=== PATIENT | female | born 1955 | race Two or more races ===

== ENCOUNTER → 2019-09-07 | Outpatient (CLI) | payer MEDICARE ==
[~2019-09-07] MED LIST: ASPI-630 PO; ATOR10TA60 PO; B2/M1TAB PO; DONE5TAB7 PO; ERGO500027 PO; GLIP10TA13 PO; GLYB5TAB3 PO; LOSA50TA15 PO; MELA5TAB20 PO; MEMA10TA56 PO; METF10007 PO; OMEG1CAP2 PO; PRAV10TA2 PO; SERT50TA8 PO; SITA100T PO
--- NOTE | 2019-09-07 09:18 | RAD ---
MR of the left shoulder HISTORY: Worsening left shoulder pain for one year. TECHNIQUE: Routine multiplanar sequences are obtained. FINDINGS: The acromioclavicular joint is mildly degenerative. Slight undersurface mass effect. The supraspinatus and infraspinatus tendons are heterogeneous with mild thickening compatible with tendinosis. Full-thickness tear at the far anterior supraspinatus tendon measuring about 5 mm AP diameter without retraction. There is some articular surface tearing extending through the more posterior supraspinatus tendon. Subscapularis tendinosis without high-grade tear. Trace fluid in the subdeltoid bursa. Mild rotator cuff muscle atrophy. No significant glenohumeral joint effusion. Mild blunting of the posterior labrum which appears small in size, compatible with degeneration or old tear. No acute labral detachment or para labral cyst is seen. The biceps tendon is not well seen, there appears to be proximal tendinosis. No acute fracture. No aggressive bone destruction. No acute soft tissue abnormality. IMPRESSION: 1. Rotator cuff tendinosis. Small subcentimeter full-thickness tear of the anterior supraspinatus tendon, with partial tearing through the more posterior supraspinatus. 2. Biceps tendinosis. 3. Blunting of the posterior labrum. Electronically signed by: Milo Pena MD (09/07/2019 9:14 AM) [place] [id number]
== END | disposition home or self-care (01) ==
LOC: MRI 11:31
PROVIDERS: ATTEND Orthopaedic Surgery
DX: S46.012A Strain of muscle(s) and tendon(s) of the rotator cuff of left shoulder, initial encounter (principal); X58.XXXA Exposure to other specified factors, initial encounter; Y93.89 Activity, other specified; Y92.89 Other specified places as the place of occurrence of the external cause; Y99.8 Other external cause status; M75.42 Impingement syndrome of left shoulder; M19.012 Primary osteoarthritis, left shoulder; M77.9 Enthesopathy, unspecified
CPT/HCPCS: 73221

== ENCOUNTER → 2019-09-27 | Outpatient (CLI) | payer MEDICARE | END | disposition home or self-care (01) | LOC: LAB 13:09 | PROVIDERS: ATTEND Orthopaedic Surgery | DX: Z11.59 Encounter for screening for other viral diseases (principal) | CPT/HCPCS: U0003-CS ==

== ENCOUNTER 2019-10-01 05:43 | Observation (INO) | payer MEDICARE ==
[~2019-10-01] VITALS: Ht 142.2 cm; Wt 71.2 kg
[2019-10-01] MEDS ORDERED: ROPIVacaine 0.5% PF 20 ML VIAL. ONE (06:45)
[2019-10-01] MEDS: INSULIN LISPRO 100 UNIT/ML 3ML VIAL for OP,RR ONLY. SQ PRN ×2 (06:45→11:37)
[2019-10-01] MEDS ORDERED: EPINEPHrine VIAL 30 MG/30 ML VIAL ONE (06:50)
[2019-10-01] MEDS ORDERED: BUPIVACAINE-EPI 0.25%-1:200000 MPF 30 ML VIAL. ONE ×2 (06:50→08:57)
[2019-10-01] MEDS ORDERED: IV RINGERS,LACTATED 1000ML 1,000 ML IV SCH (07:00)
[2019-10-01] MEDS ORDERED: INSULIN LISPRO 100 UNIT/ML 3ML VIAL for OP,RR ONLY. SQ ONE ×2 (07:00)
[2019-10-01] MEDS ORDERED: LIDOCAINE 1% PF 2 ML VIAL. ID PRN (07:00)
[2019-10-01] MEDS ORDERED: fentaNYL PF VIAL 100 MCG/2 ML VIAL IV PRN (07:00)
[2019-10-01] MEDS ORDERED: ONDANSETRON PF 4 MG/2 ML VIAL. IV PRN (07:00)
[2019-10-01] MEDS ORDERED: PROCHLORPERAZINE 10 MG/2 ML VIAL. IV PRN (07:00)
[2019-10-01] MEDS ORDERED: ONDANSETRON PF 4 MG/2 ML VIAL. ONE (07:05)
[2019-10-01] MEDS ORDERED: LIDOCAINE 2% PF 5 ML VIAL. ONE (07:05)
[2019-10-01] MEDS ORDERED: ROCURONIUM 50 MG/5 ML VIAL. ONE (07:05)
[2019-10-01] MEDS ORDERED: PROPOFOL 10 MG/ML (20ML) VIAL. IV ONE (07:05)
[2019-10-01] MEDS ORDERED: GLYCOPYRROLATE 1 MG/5 ML VIAL. ONE (07:05)
[2019-10-01] MEDS ORDERED: NEOSTIGMINE METHYLSULFATE 5 MG/5 ML SYRINGE. ONE (07:05)
[2019-10-01] MEDS ORDERED: fentaNYL PF VIAL 100 MCG/2 ML VIAL ONE ×2 (07:05→10:28)
[2019-10-01] MEDS ORDERED: DEXAMETHASONE SOD PHOS 4 MG/ML VIAL ONE (07:05)
--- NOTE | 2019-10-01 07:41 | PDOC1 ---
History and Physical Date of Admission Date of Admission DATE: 10/01/19 TIME: 07:33 Identification/Chief Complaint Chief Complaint left shoulder pain and weakness Source Source: Caregiver, Chart review, Patient History of Present Illness History of Present Illness 64-year-old woman with left shoulder pain being treated since March. We tried cortisone injection and physical therapy. She has been even more painful with nonoperative treatment, and is having difficulty holding a gallon of milk or doing other activities with the shoulder such as reaching. MRI shows rotator cuff tear biceps tendinitis and degenerative labral tear. She has a history of right shoulder rotator cuff repair by Dr. Yeung in 2014 which is doing well. Past Medical History Past Medical History Diabetes mellitus. Hypercholestrolemia. Alzheimer's. Sleep apnea. Restless legs. Depression. Past Surgical History Past Surgical History rotator cuff repair, C section Past Surgical History: Family History Family History Diabetes runs in family. Family History: Diabetes Social History Smoke: <1 pack per day ALCOHOL: none Current Medications Current Medications Current Medications Ondansetron HCl (Zofran) 4 mg PRN Q6HRS PRN IV NAUSEA/VOMITING; Start 10/01/19 at 07:00; Stop 10/02/19 at 06:59 Fentanyl Citrate (Fentanyl 2ml Vial) 25 mcg PRN Q5MIN PRN IV MILD PAIN 1-3; Start 10/01/19 at 07:00; Stop 10/02/19 at 06:59 Fentanyl Citrate (Fentanyl 2ml Vial) 50 mcg PRN Q5MIN PRN IV MODERATE TO SEVERE PAIN; Start 10/01/19 at 07:00; Stop 10/02/19 at 06:59 Morphine Sulfate (Morphine Sulfate) 1 mg PRN Q10MIN PRN IV SEVERE PAIN 7-10; Start 10/01/19 at 07:00; Stop 10/02/19 at 06:59 Ringer's Solution 1,000 ml @ 30 mls/hr Q24H IV Last administered on 10/01/19at 06:30; Start 10/01/19 at 07:00; Stop 10/01/19 at 18:59 Lidocaine HCl (Xylocaine-Mpf 1% 2ml Vial) 2 ml PRN 1X PRN ID PRIOR TO IV START; Start 10/01/19 at 07:00; Stop 10/02/19 at 06:59 Hydromorphone HCl (Dilaudid) 0.5 mg PRN Q10MIN PRN IV SEV PAIN, Second choice; Start 10/01/19 at 07:00; Stop 10/02/19 at 06:59 Prochlorperazine Edisylate (Compazine) 5 mg PACU PRN PRN IV NAUSEA, MRX1; Start 10/01/19 at 07:00; Stop 10/02/19 at 06:59 Cefazolin Sodium/ Dextrose 50 ml @ 100 mls/hr 1X ONCE IV ; Start 10/01/19 at 06:00; Stop 10/01/19 at 06:29; Status DC Insulin Human Lispro (HumaLOG VIAL for OP,RR ONLY) 0-10 units PRN Q1HR PRN SQ PER PROTOCOL Last administered on 10/01/19at 06:45; Start 10/01/19 at 06:45; Stop 10/02/19 at 06:44 Ropivacaine (Naropin 0.5%) 20 ml STK-MED ONCE .ROUTE ; Start 10/01/19 at 06:45; Stop 10/01/19 at 06:45; Status DC Epinephrine HCl (Adrenalin) 30 mg STK-MED ONCE .ROUTE ; Start 10/01/19 at 06:50; Stop 10/01/19 at 06:50; Status DC Bupivacaine HCl/ Epinephrine Bitart (Sensorcaine-Epi 0.25%-1:784139 Mpf) 30 ml STK-MED ONCE .ROUTE ; Start 10/01/19 at 06:50; Stop 10/01/19 at 06:50; Status DC Glycopyrrolate (Robinul) 1 mg STK-MED ONCE .ROUTE ; Start 10/01/19 at 07:05; Stop 10/01/19 at 07:05; Status DC Rocuronium [place] (Zemuron) 50 mg STK-MED ONCE .ROUTE ; Start 10/01/19 at 07:05; Stop 10/01/19 at 07:05; Status DC Fentanyl Citrate (Fentanyl 2ml Vial) 100 mcg STK-MED ONCE .ROUTE ; Start 10/01/19 at 07:05; Stop 10/01/19 at 07:05; Status DC Neostigmine [place] (Neostigmine Methylsulfate) 5 mg STK-MED ONCE .ROUTE ; Start 10/01/19 at 07:05; Stop 10/01/19 at 07:05; Status DC Propofol (Diprivan) 200 mg STK-MED ONCE IV ; Start 10/01/19 at 07:05; Stop 10/01/19 at 07:06; Status DC Lidocaine HCl (Lidocaine Pf 2% Vial) 5 ml STK-MED ONCE .ROUTE ; Start 10/01/19 at 07:05; Stop 10/01/19 at 07:06; Status DC Dexamethasone Sodium Phosphate (Decadron) 4 mg STK-MED ONCE .ROUTE ; Start 10/01/19 at 07:05; Stop 10/01/19 at 07:06; Status DC Ondansetron HCl (Zofran) 4 mg STK-MED ONCE .ROUTE ; Start 10/01/19 at 07:05; Stop 10/01/19 at 07:06; Status DC Active Scripts Active Reported Migrelief Caplet (B2/Mag Cit & Ox/Feverfew) 1 Each Tablet 1 Each PO DAILY Melatonin 5 Mg Tab.rapdis 1 Tab PO QHS 30 Days Vitamin D2 (Ergocalciferol (Vitamin D2)) 1,250 Mcg Capsule 2,000 Mcg PO BID Aspirin 81 Mg Tab.chew 2 Tab PO DAILY Metformin Hcl 1,000 Mg Tablet 1,000 Mg PO BIDWMEALS Sertraline Hcl 50 Mg Tablet 75 Mg PO DAILY Memantine HCl 10 Mg Tablet 10 Mg PO DAILY per daughter, patient taking once per day Atorvastatin Calcium 10 Mg Tablet 10 Mg PO DAILY Glyburide 5 Mg Tablet 5 Mg PO BID Donepezil Hcl 5 Mg Tablet 5 Mg PO HS Losartan Potassium 50 Mg Tablet 50 Mg PO DAILY Allergies Allergies: Coded Allergies: No Known Drug Allergies (Unverified , 10/01/19) ROS Review of System OPHTHALMOLOGY: Blurred vision none. Double vision denies. Change in vision none. ENT: Hearing loss reports. Change in voice denies. Rhinorrhea none. CARDIOLOGY: Palpitations none. Shortness of breath denies. Chest pain denies. CONSTITUTIONAL: Fever denies. Chills denies. Weight gain denies. Weakness none. weight loss denies. Fatigue reports. GASTROENTEROLOGY: Diarrhea denies. Vomiting none. Dysphagia none. UROLOGY: Voiding normally yes. Hematuria none. MUSCULOSKELETAL: Chronic back or neck pain denies. Swelling of the feet, hands, ankles an d /or legs denies. Joint pain reports. Tingling/numbness no. DERMATOLOGY: Rash denies. Lumps none. NEUROLOGY: Dizziness/lightheadedness reports. Double vision, temporary blindness denies. Tingling/numbness none. PSYCHOLOGY: Change in mood or personality denies. Memory loss reports. ENDOCRINOLOGY: Obesity denies. Fatigue none. Weight loss none. HEMATOLOGY/LYMPH: Hepatitis denies. Enlarged lymph nodes denies. Physical Exam General: Alert, Cooperative HEENT: Atraumatic Lungs: Normal air movement Heart: RRR Abdomen: Soft Extremities: Other (Gross alignment of the LEFT shoulder is normal. Tenderness to palpation of the subacromial bursa, AC joint, and greater tuberosity. Nontender biceps. Strength is 4/5 for the supraspinatus and 5/5 for the infraspinatus. No evidence of instability. Range of motion is 150/150/60/L5. Painful arc. Pain with resisted external rotation. Positive Neer's, Merrill, and Stanton's impingement tests. Skin, pulses, and sensation normal) Skin: No significant lesion Neuro: Normal speech, Sensation intact Vitals Vitals Vital Signs Date Time Temp Pulse Resp B/P (MAP) Pulse Ox O2 Delivery O2 Flow Rate FiO2 10/01/19 06:20 97.3 68 20 96 97.3 10/01/19 06:07 134/64 Room Air Labs Labs Laboratory Tests Test 10/01/19 06:28 Glucose (Fingerstick) 143 mg/dL (70-99) Laboratory Tests Test 10/01/19 06:28 Glucose (Fingerstick) 143 mg/dL (70-99) Images Images [facility] [id number] [place] [address] IMAGING REPORT Signed PATIENT: LUIS ALBERTO SMITH MACCOUNT: [id number] : 1955 LOCATION: MRI AGE: 64 SEX: F EXAM STATUS: PRE CLI ORD. PHYSICIAN: APOLLO BRUNO MD REASON: WORSENING LEFT SHOULDER PAIN x1YR, NKI PROCEDURE: UPPER EXT JOINT WO CONT LEFT MR of the left shoulder HISTORY: Worsening left shoulder pain for one year. TECHNIQUE: Routine multiplanar sequences are obtained. FINDINGS: The acromioclavicular joint is mildly degenerative. Slight undersurface mass effect. The supraspinatus and infraspinatus tendons are heterogeneous with mild thickening compatible with tendinosis. Full-thickness tear at the far anterior supraspinatus tendon measuring about 5 mm AP diameter without retraction. There is some articular surface tearing extending through the more posterior supraspinatus tendon. Subscapularis tendinosis without high-grade tear. Trace fluid in the subdeltoid bursa. Mild rotator cuff muscle atrophy. No significant glenohumeral joint effusion. Mild blunting of the posterior labrum which appears small in size, compatible with degeneration or old tear. No acute labral detachment or para labral cyst is seen. The biceps tendon is not well seen, there appears to be proximal tendinosis. No acute fracture. No aggressive bone destruction. No acute soft tissue abnormality. IMPRESSION: 1. Rotator cuff tendinosis. Small subcentimeter full-thickness tear of the anterior supraspinatus tendon, with partial tearing through the more posterior supraspinatus. 2. Biceps tendinosis. 3. Blunting of the posterior labrum. Electronically signed by: Milo Pena MD (09/07/2019 9:14 AM) [id number] VTE Prophylaxis Ordered VTE Prophylaxis Devices: Yes VTE Pharmacological Prophylaxi: No Assessment/Plan Assessment/Plan Her MRI shows a complete tear of her left rotator cuff with acromioclavicular joint arthritis and biceps tendinosis. We reviewed her report together and discussed the natural history of the condition along with the relevant risks, benefits, and alternatives to treatment. For today, I recommended surgery due to her continued debilitating pain and loss of function despite nonoperative tr eatment. I also advised surgery sooner rather than later due to her risk of progressive atrophy. At this point she has elected to proceed with surgery; plan for arthroscopy, subacromial decompression, distal clavicle excision, rotator cuff repair, and possible biceps tenodesis. We discussed the potential risks of infection, neurovascular injury, bleeding, need for revision surgery, or other potential surgical or anesthetic complications. We also discussed postoperative treatment and expectations including postoperative need for physical therapy and use of a DonJoy sling. Of note, the patient was mildly confused after her MRI due to Alzheimer's and dementia and I will plan to take appropriate precautions regarding her confusion postoperatively. She does have some dementia but I believe is able to complete physical therapy for the cuff repair and would benefit from surgery. She has significant pain and debility and is able to indicate that she wants to proceed with surgery because of the dysfunctional shoulder. All of her questions were answered and she desires to proceed with surgery. She is here today for elective left shoulder surgery as above. Justicifation of Admission Dx: Justifications for Admission: Justification of Admission Dx: N/A APOLLO BRUNO MD Oct 01, 2019 07:40
[2019-10-01] MEDS ORDERED: PHENYLEPHRINE 10 MG/ML VIAL. ONE (08:08)
[2019-10-01] MEDS ORDERED: ceFAZolin SODIUM IV Push 1 GM VIAL. IVP ONE (09:01)
[2019-10-01] MEDS ORDERED: oxyCODONE/APAP 5/325 1 TAB TABLET ONE (10:04)
[2019-10-01] MEDS ORDERED: oxyCODONE/APAP 5/325 1 TAB TABLET PO ONE (10:15)
[2019-10-01] MEDS: fentaNYL PF VIAL 100 MCG/2 ML VIAL IV PRN ×2 (10:33→10:55)
[2019-10-01] MEDS ORDERED: HYDROmorphone 2 MG/ML VIAL ONE (10:54)
[2019-10-01] MEDS: HYDROmorphone 2 MG/ML VIAL IV PRN ×4 (10:55→11:27)
[2019-10-01] MEDS ORDERED: LABETALOL 20 MG/4 ML DISP.SYRIN. IVP ONE (11:00)
[2019-10-01] MEDS ORDERED: MORPHINE SULFATE 2 MG/ML VIAL. ONE ×2 (11:23→11:58)
[2019-10-01] MEDS: MORPHINE SULFATE 2 MG/ML VIAL. IV PRN ×2 (11:25→11:40)
[2019-10-01] MEDS ORDERED: hydrALAZINE 20 MG/ML VIAL. IVP PRN ×2 (12:15→15:30)
--- NOTE | 2019-10-01 12:38 | PDOC1 ---
History and Physical Date of Admission Date of Admission DATE: 10/01/19 TIME: 12:38 Identification/Chief Complaint Chief Complaint POST OP HTN, LABILE IN PACU, seen in PACU with Dr Rosado, slow to awaken from iv pain meds, now more awake MRI showed a complete tear of her left rotator cuff with acromioclavicular joint arthritis and biceps tendinosis, raffi surgery well, but bp intermittently high. recheck at 1600, awake, alert bp wnl Past Medical History Cardiovascular: HTN Musculoskeletal: Osteoarthritis Past Surgical History Past Surgical History: Family History Family History Past Medical History Diabetes mellitus. hypertension Hypercholestrolemia. Alzheimer's. Sleep apnea. Restless legs. Depression. Past Surgical History Past Surgical History rotator cuff repair, C section Past Surgical History: Family History Family History Diabetes runs in family. Family History: Diabetes Social History Smoke: <1 pack per day ALCOHOL: none Family History: Diabetes Social History Smoke: No ALCOHOL: none Drugs: None Current Medications Current Medications Current Medications Ondansetron HCl (Zofran) 4 mg PRN Q6HRS PRN IV NAUSEA/VOMITING; Start 10/01/19 at 07:00; Stop 10/02/19 at 06:59 Fentanyl Citrate (Fentanyl 2ml Vial) 25 mcg PRN Q5MIN PRN IV MILD PAIN 1-3; Start 10/01/19 at 07:00; Stop 10/02/19 at 06:59 Fentanyl Citrate (Fentanyl 2ml Vial) 50 mcg PRN Q5MIN PRN IV MODERATE TO SEVERE PAIN Last administered on 10/01/19at 10:55; Start 10/01/19 at 07:00; Stop 10/02/19 at 06:59 Morphine Sulfate (Morphine Sulfate) 1 mg PRN Q10MIN PRN IV SEVERE PAIN 7-10 Last administered on 10/01/19at 11:40; Start 10/01/19 at 07:00; Stop 10/02/19 at 06:59 Ringer's Solution 1,000 ml @ 30 mls/hr Q24H IV Last administered on 10/01/19at 06:30; Start 10/01/19 at 07:00; Stop 10/01/19 at 18:59 Lidocaine HCl (Xylocaine-Mpf 1% 2ml Vial) 2 ml PRN 1X PRN ID PRIOR TO IV START; Start 10/01/19 at 07:00; Stop 10/02/19 at 06:59 Hydromorphone HCl (Dilaudid) 0.5 mg PRN Q10MIN PRN IV SEV PAIN, Second choice Last administered on 10/01/19at 11:27; Start 10/01/19 at 07:00; Stop 10/02/19 at 06:59 Prochlorperazine Edisylate (Compazine) 5 mg PACU PRN PRN IV NAUSEA, MRX1; Start 10/01/19 at 07:00; Stop 10/02/19 at 06:59 Cefazolin Sodium/ Dextrose 50 ml @ 100 mls/hr 1X ONCE IV Last administered on 10/01/19at 07:44; Start 10/01/19 at 06:00; Stop 10/01/19 at 06:29; Status DC Insulin Human Lispro (HumaLOG VIAL for OP,RR ONLY) 0-10 units PRN Q1HR PRN SQ PER PROTOCOL Last administered on 10/01/19at 11:37; Start 10/01/19 at 06:45; Stop 10/02/19 at 06:44 Ropivacaine (Naropin 0.5%) 20 ml STK-MED ONCE .ROUTE ; Start 10/01/19 at 06:45; Stop 10/01/19 at 06:45; Status DC Epinephrine HCl (Adrenalin) 30 mg STK-MED ONCE .ROUTE Last administered on 10/01/19at 08:45; Start 10/01/19 at 06:50; Stop 10/01/19 at 06:50; Status DC Bupivacaine HCl/ Epinephrine Bitart (Sensorcaine-Epi 0.25%-1:318633 Mpf) 30 ml STK-MED ONCE .ROUTE Last administered on 10/01/19at 08:46; Start 10/01/19 at 06:50; Stop 10/01/19 at 06:50; Status DC Glycopyrrolate (Robinul) 1 mg STK-MED ONCE .ROUTE ; Start 10/01/19 at 07:05; Stop 10/01/19 at 07:05; Status DC Rocuronium [place] (Zemuron) 50 mg STK-MED ONCE .ROUTE ; Start 10/01/19 at 07:05; Stop 10/01/19 at 07:05; Status DC Fentanyl Citrate (Fentanyl 2ml Vial) 100 mcg STK-MED ONCE .ROUTE ; Start 10/01/19 at 07:05; Stop 10/01/19 at 07:05; Status DC Neostigmine [place] (Neostigmine Methylsulfate) 5 mg STK-MED ONCE .ROUTE ; Start 10/01/19 at 07:05; Stop 10/01/19 at 07:05; Status DC Propofol (Diprivan) 200 mg STK-MED ONCE IV ; Start 10/01/19 at 07:05; Stop 10/01/19 at 07:06; Status DC Lidocaine HCl (Lidocaine Pf 2% Vial) 5 ml STK-MED ONCE .ROUTE ; Start 10/01/19 at 07:05; Stop 10/01/19 at 07:06; Status DC Dexamethasone Sodium Phosphate (Decadron) 4 mg STK-MED ONCE .ROUTE ; Start 10/01/19 at 07:05; Stop 10/01/19 at 07:06; Status DC Ondansetron HCl (Zofran) 4 mg STK-MED ONCE .ROUTE ; Start 10/01/19 at 07:05; Stop 10/01/19 at 07:06; Status DC Phenylephrine HCl (Leonardo-Synephrine Inj) 10 mg STK-MED ONCE .ROUTE ; Start 10/01/19 at 08:08; Stop 10/01/19 at 08:08; Status DC Bupivacaine HCl/ Epinephrine Bitart (Sensorcaine-Epi 0.25%-1:597325 Mpf) 30 ml STK-MED ONCE .ROUTE Last administered on 10/01/19at 09:22; Start 10/01/19 at 08:57; Stop 10/01/19 at 08:57; Status DC Cefazolin Sodium (Ancef) 1 gm STK-MED ONCE IVP ; Start 10/01/19 at 09:01; Stop 10/01/19 at 09:01; Status DC Oxycodone/ Acetaminophen (Percocet 5/325) 2 tab 1X ONCE PO ; Start 10/01/19 at 10:15; Stop 10/01/19 at 10:16; Status DC Oxycodone/ Acetaminophen (Percocet 5/325) 1 tab STK-MED ONCE .ROUTE ; Start 10/01/19 at 10:04; Stop 7/10/20 at 10:05; Status DC Fentanyl Citrate (Fentanyl 2ml Vial) 100 mcg STK-MED ONCE .ROUTE ; Start 10/01/19 at 10:28; Stop 10/01/19 at 10:28; Status DC Hydromorphone HCl (Dilaudid) 2 mg STK-MED ONCE .ROUTE ; Start 10/01/19 at 10:54; Stop 10/01/19 at 10:54; Status DC Labetalol HCl (Normodyne Iv Push) 20 mg ONCE ONCE IVP ; Start 10/01/19 at 11:00; Stop 10/01/19 at 11:01; Status DC Morphine Sulfate (Morphine Sulfate) 2 mg STK-MED ONCE .ROUTE ; Start 10/01/19 at 11:23; Stop 10/01/19 at 11:23; Status DC Morphine Sulfate (Morphine Sulfate) 2 mg STK-MED ONCE .ROUTE ; Start 10/01/19 at 11:58; Stop 10/01/19 at 11:59; Status DC Hydralazine HCl (Apresoline Inj) 10 mg PRN Q3HRS PRN IVP ELEVATED BP, SEE COMMENTS; Start 10/01/19 at 12:15 Active Scripts Active Reported Migrelief Caplet (B2/Mag Cit & Ox/Feverfew) 1 Each Tablet 1 Each PO DAILY Melatonin 5 Mg Tab.rapdis 1 Tab PO QHS 30 Days Vitamin D2 (Ergocalciferol (Vitamin D2)) 1,250 Mcg Capsule 2,000 Mcg PO BID Aspirin 81 Mg Tab.chew 2 Tab PO DAILY Metformin Hcl 1,000 Mg Tablet 1,000 Mg PO BIDWMEALS Sertraline Hcl 50 Mg Tablet 75 Mg PO DAILY Memantine HCl 10 Mg Tablet 10 Mg PO DAILY per daughter, patient taking once per day Atorvastatin Calcium 10 Mg Tablet 10 Mg PO DAILY Glyburide 5 Mg Tablet 5 Mg PO BID Donepezil Hcl 5 Mg Tablet 5 Mg PO HS Losartan Potassium 50 Mg Tablet 50 Mg PO DAILY Allergies Allergies: Coded Allergies: No Known Drug Allergies (Unverified , 10/01/19) ROS Review of System unable to cooperate due to anesthesia General: No: Chills, Night Sweats, Fatigue, Malaise, Appetite, Other PSYCHOLOGICAL ROS: YES: Memory difficulties; No: Anxiety, Behavioral Disorder, Concentration difficultie, Decreased libido, Depression, Disorientation, Hallucinations, Hostility, Irritablity, Mood Swings, Obsessive thoughts, Physical abuse, Sexual abuse, Sleep disturbances, Suicidal ideation, Other ALLERGY AND IMMUNOLOGY: No: Hives, Insect Bite Sensitivity, Itchy/Watery Eyes, Nasal Congestion, Post Nasal Drip, Seasonal Allergies, Other Hematological and Lymphatic: No: Bleeding Problems, Blood Clots, Blood Transfusions, Brusing, Night Sweats, Pallor, Swollen Lymph Nodes, Other Respiratory: No: Cough, Hemoptysis, Orthopnea, Pleuritic Pain, Shortness of br eath, SOB with excertion, Sputum Changes, Stridor, Tachypnea, Wheezing, Other Gastrointestinal: No Nausea, No Vomiting, No Abdominal Pain, No Diarrhea, No Constipation, No Melena, No Hematochezia, No Other Neurological: Yes Confusion Physical Exam General: Alert, Oriented X3, Cooperative, No acute distress HEENT: Atraumatic, EOMI, Mucous membr. moist/pink Lungs: Clear to auscultation, Normal air movement Heart: S1S2, RRR, no thrills Breasts: Not examined Abdomen: Normal bowel sounds, Soft Rectal Exam: not examined PELVIC: Examination not indicated Extremities: No cyanosis, No edema Skin: No rashes Neuro: Normal speech, Strength at 5/5 X4 ext, Cranial nerves 3-12 NL Psych/Mental Status: Mental status NL, Mood NL Vitals Vitals Vital Signs Date Time Temp Pulse Resp B/P (MAP) Pulse Ox O2 Delivery O2 Flow Rate FiO2 10/01/19 12:20 103 17 140/54 97 Simple Mask 10 10/01/19 12:05 97.4 97.4 Labs Labs Laboratory Tests Test 10/01/19 06:28 10/01/19 10:23 10/01/19 11:33 Glucose (Fingerstick) 143 mg/dL (70-99) 181 mg/dL (70-99) 223 mg/dL (70-99) Laboratory Tests Test 10/01/19 06:28 10/01/19 10:23 10/01/19 11:33 Glucose (Fingerstick) 143 mg/dL (70-99) 181 mg/dL (70-99) 223 mg/dL (70-99) Images Images MR of the left shoulder HISTORY: Worsening left shoulder pain for one year. TECHNIQUE: Routine multiplanar sequences are obtained. FINDINGS: The acromioclavicular joint is mildly degenerative. Slight undersurface mass effect. The supraspinatus and infraspinatus tendons are heterogeneous with mild thickening compatible with tendinosis. Full-thickness tear at the far anterior supraspinatus tendon measuring about 5 mm AP diameter without retraction. There is some articular surface tearing extending through the more posterior supraspinatus tendon. Subscapularis tendinosis without high-grade tear. Trace fluid in the subdeltoid bursa. Mild rotator cuff muscle atrophy. No significant glenohumeral joint effusion. Mild blunting of the posterior labrum which appears small in size, compatible with degeneration or old tear. No acute labral detachment or para labral cyst is seen. The biceps tendon is not well seen, there appears to be proximal tendinosis. No acute fracture. No aggressive bone destruction. No acute soft tissue abnormality. IMPRESSION: 1. Rotator cuff tendinosis. Small subcentimeter full-thickness tear of the anterior supraspinatus tendon, with partial tearing through the more posterior supraspinatus. 2. Biceps tendinosis. 3. Blunting of the posterior labrum. Electronically signed by: Milo Pena MD (09/07/2019 9:14 AM) [id number] DICTATED and SIGNED BY: MILO PENA MD DATE: 09/07/19913 VTE Prophylaxis Ordered VTE Prophylaxis Devices: Yes VTE Pharmacological Prophylaxi: No Assessment/Plan Assessment/Plan impression 1. POST operative labile hypertension 2. KNOWN HX HTN 3. MRI shows a complete tear of her left rotator cuff with acromioclavicular joint arthritis and biceps tendinosis. Open repair, chronic tear without graft, left shoulder rotator cuff repair. 09/30 4. MORBID OBESITY PLAN ADMIT IV HYDRALAZINE 10 MG Q 3 HRS PRN SBP> 165 NEUROCHECKS Q 2 HRS CBC, COMP HEALTH NOW CVC BED BEDREST CONSULT DR ROSADO NPO UNTIL AWAKE IV HYDRALAZINE 10MG Q 3 HRS PRN BP SUPPORT Cardiology consult echo SS INSULIN CONT HOME MEDS 56 min pt exam, chart review, > 50% of time spent with exam, chart review, pt care coordination Justicifation of Admission Dx: Justifications for Admission: Justification of Admission Dx: N/A ESAU IVEY MD Oct 01, 2019 12:38
[2019-10-01] MEDS: IV NORMAL SALINE 1000ML BAG 1,000 ML IV SCH (12:54)
[2019-10-01] MEDS ORDERED: 0.9 % SODIUM CHLORIDE 10 ML DISP.SYRIN. IV PRN (13:00)
[2019-10-01] MEDS ORDERED: MAG HYDROX/ALUMINUM HYD/SIMETH 30 ML ORAL.SUSP PO PRN (13:00)
[2019-10-01] MEDS ORDERED: ALBUTEROL SULFATE 2.5 MG/3 ML NEBU. NEB PRN (13:00)
[2019-10-01] MEDS ORDERED: DOCUSATE SODIUM 100 MG CAPSULE. PO PRN (13:00)
[2019-10-01] MEDS ORDERED: ZOLPIDEM 5 MG TABLET. PO PRN (13:00)
[2019-10-01] MEDS ORDERED: guaiFENesin ORAL 200 MG/10 ML LIQUID. PO PRN (13:00)
[2019-10-01] MEDS ORDERED: DEXTROSE 50% 25 GM / 50ML DISP.SYRIN. IV PRN (13:00)
[2019-10-01] MEDS ORDERED: SODIUM PHOSPHATES 19/7GM 133 ML ENEMA. PR PRN (13:00)
--- NOTE | 2019-10-01 13:11 | PDOC4 ---
Operative Note Operative Note PREOPERATIVE DIAGNOSES: 1. Incomplete rotator cuff tear or rupture of left shoulder, not specified as traumatic M75.112 2. Impingement syndrome of left shoulder M75.42 3. Left shoulder acromioclavicular joint osteoarthritis (Primary osteoarthritis, left shoulder) M19.012 4. Biceps tendonitis POSTOPERATIVE DIAGNOSES: 1. Incomplete rotator cuff tear or rupture of left shoulder, not specified as traumatic M75.112 2. Impingement syndrome of left shoulder M75.42 3. Left shoulder acromioclavicular joint osteoarthritis (Primary osteoarthritis, left shoulder) M19.012 PROCEDURES PERFORMED: 1. Open repair, chronic tear without graft, left shoulder rotator cuff repair. CPT 46796 2. Arthroscopy, shoulder, surgical; decompression of subacromial space with partial acromioplasty, with coracoacromial ligament release CPT 38019 3. Arthroscopy, shoulder, surgical; distal claviculectomy including distal articular surface (Sanjuanita procedure) CPT 70300 SURGEON: Apollo Rosado M.D. ELECTRICAL JOURNEYMAN: Elio PALENCIA ANESTHESIA: General plus regional block ESTIMATED BLOOD LOSS: 25 mL COMPLICATIONS: None SPECIMENS: None DRAINS: None INDICATIONS FOR PROCEDURE: Ms. Heller is a 64-year-old woman with shoulder pain and weakness. An MRI shows a rotator cuff tear but preserved muscle. She tried nonoperative treatment without success. We discussed options for treatment. I have recommended arthroscopic subacromial decompression, arthroscopic distal clavicle excision and then likely a mini open cuff repair and possible biceps tenodesis. We talked about the potential risks of that such as bleeding, inf ection, blood clots, scarring, retear, continued pain, neurovascular injury, infection or other potential surgical or anesthetic complications. All of her questions about surgery were answered, and she desired to proceed. A written consent was obtained. DESCRIPTION OF PROCEDURE: The patient was identified in the preoperative holding area. The correct left shoulder was marked by me. Regional block was performed by the anesthesia department. She was taken to the operating room where a general anesthetic was used. Preoperative antibiotics were given intravenously. A time-out procedure was performed. The patient was positioned in the beach- chair position with the bony prominences was well padded. SCDs were used on the legs. Eyes were protected and a face pad was used. Neutral cervical spine positioning was used. Landmarks were marked on the shoulder with a skin marker. The skin was prepared initially at the shoulder area only, and 20 mL of 0.25% bupivacaine with epinephrine was injected into the subacromial space and glenohumeral joint. Next, the arm was circumferentially prepared with ChloraPrep solution from the neck to the fingertips, and circumferential sterile waterproof arthroscopy draping was applied. An impervious stockinette was used on the lower arm, and a Spider arm keene was used. Posterior, posterolateral, lateral and anterior arthroscopy portals were used. The glenohumeral joint showed normal articular surfaces, minor degenerative change only of the posterior labrum and minimal shaving debridement was performed. The biceps tendon was intact and did not show any partial tearing or evidence of significant degenerative change. The subscapularis appears intact arthroscopically. There was partial tearing of the anterior supraspinatus, and a marker suture was placed. The subacromial space was entered through the posterolateral portal. There was extensive impingement occurring and a very prominent anterior and lateral acromion. The marker suture location showed high-grade bursal sided partial thickness tear and possible small area of full-thickness tear. I removed the undersurface periosteum with RADSONE's Edge Bipolar Arthroscopic RF System. I performed a three-stage acromioplasty, the first stage with a 6.0 mm oval dewey in the lateral portal and defining the anterior tip of the acromion, the second stage with a dewey in the posterior portal and the arthroscope laterally, for the cutting block technique converting the acromion into a Bigliani type I configuration, and the third stage with the dewey again laterally for final smoothing. I also noted a very prominent and arthritic acromioclavicular joint and a distal clavicle excision was indicated. I resected the entire distal clavicle articular surface using the dewey. This decompressed the subacromial space nicely. The cuff tear had complex laminations, and I converted to an open repair. Antibiotics were re-dosed. The skin was prepared second time with ChloraPrep. Outer gloves were changed. An anterolateral deltoid raphe splitting incision was used. Care was made not to extend more than 4 cm distal to the acromion so as to avoid axillary nerve injury. Self-retaining retractors were used including a Weitlaner retractor. This was a high grade chronic tear somewhat deficient regarding the bursal sided supraspinatus tissue with a thin deep layer of intact cuff tissue only 2-3 mm thick of intact cuff. The infraspinatus is intact. I completed the tear with a 15 blade scalpel, perforating the remaining rim of intact cuff and converting this to a full-thickness crescent tear approximately 2 cm in width. The cuff tissue at the tear is degenerative and poor quality due to the chronic tear but the remaining cuff tissue is of good quality and the cuff tear is mobile and easily repaired. I did debridement of some of the nonviable fragments of chronic degenerative rotator cuff tissue at the edge of the repair. I used a rongeurs and the bur to create a "crimson duvet" at the footprint, and removed a prominent osteophyte at the lateral footprint. I used the Arthrex SpeedBridge kit for the rotator cuff repair. I did a SpeedBridge repair with two medial row biocomposite 4.75 mm anchors and two lateral row biocomposite 4.75 mm anchors. I placed the two medial row anchors and then passed the mattress sutures and swedged FiberTapes using the Industry Weapon suture passer. I tied the medial row mattress sutures. The crossing tapes were then trimmed and I placed two lateral Swivelock anchors at the lateral aspect of the footprint. The more posterior of the lateral row anchors had poor bone fixation, and I tried replacing this with a 6.25 mm anchor which still had poor fixation. Ultimately I created an anchor hole further down the lateral cortex of the humerus for better bone quality and used a 4.75 mm anchor with secure fixation. I did use the additional sutures from lateral row anchors anteriorly and posteriorly into the small dog ears, for further stabilization of the lateral row. All of the sutures were trimmed. Copious saline irrigation was used. The deltoid fascia was repaired with 0 Vicryl [id number] sutures. The subcutaneous tissues were closed with 2-0 Vicryl by my research lab assistant. A 3-0 Prolene was used in the skin in interrupted and running subcuticular fashion by my research lab assistant. Mastisol and Steri-Strips were used. Needle and sponge counts were correct. Additional 30 mL of 0.25% bupivacaine with epinephrine was injected. Sterile dressings were applied. The DonJoy UltraSling was used. There were no apparent complications and the patient was returned to recovery room in stable condition. APOLLO ROSADO MD Oct 01, 2019 13:11
[2019-10-01 13:30] VITALS: BP 104/51
[2019-10-01 15:00] VITALS: BP 116/60
--- NOTE | 2019-10-01 15:19 | PDOC2 ---
JOSE KAY OVERLOCK ELASTIC ATTACHER 10/01/19 1519: CARDIAC CONSULT DATE OF CONSULT Date of Consult DATE: 10/01/19 TIME: 15:08 REASON FOR CONSULT Reason for Consult: Post op HTN REFERRING PHYSICIAN Referring Physician: Fullbright SOURCE Source: Chart review, Patient HISTORY OF PRESENT ILLNESS HISTORY OF PRESENT ILLNESS This is a 64 yo female admitted for planned left shoulder repair. She has been significant pain and limited LUE mobility hence the surgery. Post operatively she was noted with tachycardia and significantly elevated HTN. Her BP has significantly improved after analgesia. She takes losartan at home but has not received this. Presently her SBP is in the 90s after receiving morphine. Her pain is currently controlled. No past hx of CAD, CVA but significant for alzheimers dementia at a young age PAST MEDICAL HISTORY Cardiovascular: HTN, Hyperlipidemia CENTRAL NERVOUS SYSTEM: Dementia (alzheimers), Other (RLS) Psych: Depression Musculoskeletal: Osteoarthritis ENT: Other (cataract) Endocrine: Diabetes (2) PAST SURGICAL HISTORY Past Surgical History: (x3), Other (right RTC repair) FAMILY HISTORY Family History: Diabetes SOCIAL HISTORY Smoke: <1 pack per day ALCOHOL: none Drugs: None Lives: with Family CURRENT MEDICATIONS CURRENT MEDICATIONS Current Medications Medications (Trade) Dose Ordered Sig/Abner Route PRN Reason Start Time Stop Time Status Last Admin Dose Admin Fentanyl Citrate (Fentanyl 2ml Vial) 50 mcg PRN Q5MIN PRN IV MODERATE TO SEVERE PAIN 10/01/19 07:00 10/02/19 06:59 10/01/19 10:55 Morphine Sulfate (Morphine Sulfate) 1 mg PRN Q10MIN PRN IV SEVERE PAIN 7-10/01/19 07:00 10/02/19 06:59 10/01/19 11:40 Ringer's Solution 1,000 ml @ 30 mls/hr Q24H IV 10/01/19 07:00 10/01/19 18:59 10/01/19 06:30 Hydromorphone HCl (Dilaudid) 0.5 mg PRN Q10MIN PRN IV SEV PAIN, Second choice 10/01/19 07:00 10/02/19 06:59 10/01/19 11:27 Cefazolin Sodium/ Dextrose 50 ml @ 100 mls/hr 1X ONCE IV 10/01/19 06:00 10/01/19 06:29 DC 10/01/19 07:44 Insulin Human Lispro (HumaLOG VIAL for OP,RR ONLY) 0-10 units PRN Q1HR PRN SQ PER PROTOCOL 10/01/19 06:45 10/02/19 06:44 10/01/19 11:37 Epinephrine HCl (Adrenalin) 30 mg STK-MED ONCE .ROUTE 10/01/19 06:50 10/01/19 06:50 DC 10/01/19 08:45 Bupivacaine HCl/ Epinephrine Bitart (Sensorcaine-Epi 0.25%-1:548681 Mpf) 30 ml STK-MED ONCE .ROUTE 10/01/19 06:50 10/01/19 06:50 DC 10/01/19 08:46 Bupivacaine HCl/ Epinephrine Bitart (Sensorcaine-Epi 0.25%-1:136197 Mpf) 30 ml STK-MED ONCE .ROUTE 10/01/19 08:57 10/01/19 08:57 DC 10/01/19 09:22 ALLERGIES ALLERGIES: Coded Allergies: No Known Drug Allergies (Unverified , 10/01/19) ROS Review of System limited as pt has dementia and details discussed with daughter in room PHYSICAL EXAM General: Alert, Cooperative, No acute distress HEENT: Atraumatic, Mucous membr. moist/pink Lungs: Other (diminished bases) Heart: Regular rate (SR), Normal S1, Normal S2, No murmurs Abdomen: Soft, No tenderness Extremities: No cyanosis, No edema Skin: Other (left sholder surgical incision) Neuro: Normal speech, Sensation intact Psych/Mental Status: Mental status NL, Mood NL MUSCULOSKELETAL: Osteoarthritic changes both hands, Other (Left arm shoulder incision with left arm in a sling) VITALS/I&O VITALS/I&O: Vital Signs Date Time Temp Pulse Resp B/P (MAP) Pulse Ox O2 Delivery O2 Flow Rate FiO2 10/01/19 13:20 97.4 98 16 116/52 99 Nasal Cannula 2 97.4 LABS Lab: Laboratory Tests Test 10/01/19 06:28 10/01/19 10:23 10/01/19 11:33 10/01/19 13:22 Glucose (Fingerstick) 143 mg/dL (70-99) H 181 mg/dL (70-99) H 223 mg/dL (70-99) H 153 mg/dL (70-99) H ASSESSMENT/PLAN ASSESSMENT/PLAN 1. S/P open left RTC repair with decompression and lily procedure, tolerated procedure well 2. HTN urgency: due to nociceptive pain, BP is now marginally low after morphine 3. Alzheimers Dementia 4. DM2 5. HLP Recommendations 1. May resume home losartan tomorrow pending BP trend overnight. EBL low. IVF pe r ortho. Will place on PRN hydralazine if analgesic is not enough to control her BP 2. Continue with secondary prevention measures. BMP, TSH and will obtain EKG and note any hypertrophic morphology. 3. Supportive care. SHERI MUSA MD 10/01/19 1733: CARDIAC CONSULT ASSESSMENT/PLAN ASSESSMENT/PLAN Pt. seen and examined. Agree with above PRESCHOOL SPECIAL EDUCATION TEACHER note. Supportive care with post-op pain control. Thanks JOSE KAY APRN Oct 01, 2019 15:19 SHERI MUSA MD Oct 01, 2019 17:33
--- NOTE | 2019-10-01 16:12 | EKG ---
[facility] [address] [place] [address] Test Date: 2019-10-01 Test Time: 16:04:19 Pat Name: LUIS ALBERTO SMITH Department: Room: 262 1 Gender: F Finisher Machine: GEETA : 1955 Requested By: JOSE KAY Order Number: [id number] Reading MD: Measurements Intervals [place] Rate: 109 P: 37 MI: 160 QRS: 11 QRSD: 68 T: 75 QT: 340 QTc: 459 Interpretive Statements SINUS TACHYCARDIA VENTRICULAR PREMATURE COMPLEX(ES) INTERPOLATED VENTRICULAR PREMATURE COMPLEX(ES) INTERPOLATED ATRIAL PREMATURE COMPLEX(ES) ST & T ABNORMALITY, CONSIDER HIGH LATERAL ISCHEMIA OR LEFT VENTRICULAR STRAIN ABNORMAL ECG RI6.02 Compared to ECG 12/13/2011 14:50:23 T-wave abnormality now present Possible ischemia now present Sinus rhythm no longer present
[2019-10-01] MEDS: INSULIN LISPRO 300 UNITS/3 ML VIAL. SQ SCH (17:24)
[2019-10-01 18:32] LABS: BILIRUBIN,URINE NEGATIVE (NEG); CLARITY,URINE CLEAR; COLOR,URINE YELLOW; NITRITE,URINE NEGATIVE (NEG); PROTEIN,URINE 30 mg/dL (NEG-TRACE); UROBILINOGEN,URINE 0.2 mg/dL (0.2 mg/dL)
[2019-10-01 18:44] LABS: HYALINE CASTS, URINE MODERATE /HPF; SQUAMOUS EPITHELIAL CELL,UR MOD /LPF
[2019-10-01 18:45] LABS: BACTERIA,URINE 0 /HPF (0-FEW); RBC,URINE 0 /HPF (0-2); WBC,URINE 20-40 /HPF (0-4)
[2019-10-01 18:46] LABS: GRANULAR CASTS,URINE OCCASIONAL /HPF
[2019-10-01 19:25] VITALS: BP 138/62
[2019-10-01] MEDS: CHOLECALCIFEROL (VITAMIN D3) 5,000 UNIT CAPSULE PO SCH (19:38)
[2019-10-01] MEDS: ACETAMINOPHEN 325 MG TABLET. PO PRN (19:38)
[2019-10-01] MEDS: glyBURIDE 5 MG TABLET PO SCH (19:38)
--- NOTE | 2019-10-01 20:30 | EKG ---
[facility] [address] [place] [address] Test Date: 2019-10-01 Test Time: 20:27:18 Pat Name: LUIS ALBERTO SMITH Department: Room: 262 1 Gender: F Director Of Career Services: : 1955 Requested By: SHERI MUSA Order Number: [id number] Reading MD: Measurements Intervals [place] Rate: 73 P: 245 ND: 164 QRS: -69 QRSD: 66 T: 218 QT: 348 QTc: 387 Interpretive Statements SINUS RHYTHM ABNORMAL LEFT AXIS DEVIATION CONSIDER LEFT VENTRICULAR HYPERTROPHY QRS(T) CONTOUR ABNORMALITY CONSISTENT WITH INFERIOR INFARCT AGE UNDETERMINED ST & T ABNORMALITY, CONSIDER HIGH LATERAL ISCHEMIA OR LEFT VENTRICULAR STRAIN ABNORMAL ECG RI6.02 Compared to ECG 10/01/2019 16:04:19 Left-axis deviation now present Myocardial infarct finding now present Sinus tachycardia no longer present T-wave abnormality still present Possible ischemia still present
[2019-10-01] MEDS ORDERED: DONEPEZIL HCL 5 MG TABLET. PO SCH (21:00)
[2019-10-01] MEDS ORDERED: NON FORMULARY ITEM (Melatonin 1 TAB) PO SCH (21:00)
[2019-10-01 23:15] VITALS: BP 149/78
[2019-10-02] MEDS: IV NORMAL SALINE 1000ML BAG 1,000 ML IV SCH ×2 (02:14→12:31)
[2019-10-02] MEDS: ACETAMINOPHEN 325 MG TABLET. PO PRN (03:15)
[2019-10-02 03:17] VITALS: BP 163/73
[2019-10-02] MEDS ORDERED: cefTRIAXone IV Push 1 GM VIAL. IVP ONE (04:00)
[2019-10-02] MEDS ORDERED: MORPHINE SULFATE 2 MG/ML VIAL. IV PRN (05:00)
--- NOTE | 2019-10-02 06:40 | NUR ---
notified at this time that overnight around 1am pt with hx dementia and alzheimers who is especially confused overnight per family report pulled her surgical dressing off and may have removed some sutures in doing so. states he will look at it today. I also got an order for additional pain medication for her while on the phone with him. Incision sites are all approximated, dressing was re-applied at the time her dressing came off at 1am.
[2019-10-02] MEDS ORDERED: HYDROcodone/APAP 5/325MG 1 TAB TABLET PO PRN (06:45)
[2019-10-02 07:00] VITALS: BP 183/63
--- NOTE | 2019-10-02 08:38 | DISCH ---
DISCHARGE INSTRUCTIONS Condition on Discharge Condition on Discharge: Stable Activity After Discharge Activity Instructions for Disc: Other, see below Other activity instructions: arm to remain in sling Bathing Instructions: Shower-keep dressing dry Weight Bearing Status after Di: Non weight bearing Diet after Discharge Diet after Discharge: Regular Wound Incision Care Wound/Incision Care: Ice to area for comfort, Keep wound/cast CDI, Change dressing Contacting the [facility] after DC Call your doctor for: Concerns you may have Follow-Up Follow up with: Ashlee in 2 wks NATASHA CAT II, MD Oct 02, 2019 08:38
[2019-10-02] MEDS ORDERED: ASPIRIN CHEWABLE 81 MG TABLET. PO SCH (09:00)
[2019-10-02] MEDS ORDERED: LOSARTAN POTASSIUM 50 MG TABLET. PO SCH (09:00)
[2019-10-02] MEDS ORDERED: SERTRALINE 25 MG TABLET. PO SCH (09:00)
[2019-10-02] MEDS ORDERED: FEVERFEW PO SCH (09:00)
[2019-10-02] MEDS ORDERED: B2 PO SCH (09:00)
[2019-10-02] MEDS ORDERED: [UNRECOGNIZED DRUG - OTHER] PO SCH (09:00)
[2019-10-02] MEDS ORDERED: MEMANTINE 10 MG TABLET. PO SCH (09:00)
[2019-10-02] MEDS ORDERED: MAG CIT PO SCH (09:00)
[2019-10-02] MEDS ORDERED: ATORVASTATIN CALCIUM 10 MG TABLET. PO SCH (09:00)
[2019-10-02 09:04] LABS: HEMATOCRIT 35.1 % (36.0-47.0); HEMOGLOBIN 11.8 g/dL (12.0-15.5); RED BLOOD COUNT 4.09 x10^6/uL (3.50-5.40); RED CELL DISTRIBUTION WIDTH 14.5 % (11.5-14.5); WHITE BLOOD COUNT 11.3 x10^3/uL (4.0-11.0)
[2019-10-02 09:12] LABS: CALCIUM 8.9 mg/dL (8.5-10.1); GFR 55.5; POTASSIUM 3.9 mmol/L (3.5-5.1)
[2019-10-02] MEDS: glyBURIDE 5 MG TABLET PO SCH (09:13)
[2019-10-02] MEDS: CHOLECALCIFEROL (VITAMIN D3) 5,000 UNIT CAPSULE PO SCH (09:13)
--- NOTE | 2019-10-02 09:30 | PDOC ---
ORTHO PROGRESS NOTES Subjective Keren had some confusion overnight, her family is at bedside this morning and they tell me this is normal for her. Vitals Vital Signs Date Time Temp Pulse Resp B/P (MAP) Pulse Ox O2 Delivery O2 Flow Rate FiO2 10/02/19 09:14 68 183/63 10/02/19 08:14 15 96 Room Air 10/02/19 07:00 98.8 98.8 10/01/19 15:00 3.0 Labs Laboratory Tests Test 10/01/19 06:28 10/01/19 10:23 10/01/19 11:33 10/01/19 13:22 Glucose (Fingerstick) 143 mg/dL (70-99) 181 mg/dL (70-99) 223 mg/dL (70-99) 153 mg/dL (70-99) Test 10/01/19 17:00 10/01/19 18:15 10/01/19 20:35 10/02/19 08:00 Glucose (Fingerstick) 216 mg/dL (70-99) 207 mg/dL (70-99) 168 mg/dL (70-99) Urine Collection Type Unknown Urine Color Yellow Urine Clarity Clear Urine pH 6.0 (<5.0-8.0) Urine Specific [place] 1.020 (1.000-1.030) Urine Protein 30 mg/dL (NEG-TRACE) Urine Glucose (UA) Negative mg/dL (NEG) Urine Ketones (Stick) Negative mg/dL (NEG) Urine Blood Negative (NEG) Urine Nitrite Negative (NEG) Urine Bilirubin Negative (NEG) Urine Urobilinogen Dipstick 0.2 mg/dL (0.2 mg/dL) Urine Leukocyte Esterase Small (NEG) Urine RBC 0 /HPF (0-2) Urine WBC 20-40 /HPF (0-4) Urine Squamous Epithelial Cells Mod /LPF Urine Transitional Epithelial Cells Few /LPF Urine Renal Epithelial Cells Occ /LPF Urine Bacteria 0 /HPF (0-FEW) Urine Hyaline Casts Moderate /HPF Urine Granular Casts Occasional /HPF Urine Mucus Mod /LPF Test 10/02/19 08:40 White Blood Count 11.3 x10^3/uL (4.0-11.0) Red Blood Count 4.09 x10^6/uL (3.50-5.40) Hemoglobin 11.8 g/dL (12.0-15.5) Hematocrit 35.1 % (36.0-47.0) Mean Corpuscular Volume 86 fL (79-100) Mean Corpuscular Hemoglobin 29 pg (25-35) Mean Corpuscular Hemoglobin Concent 34 g/dL (31-37) Red Cell Distribution Width 14.5 % (11.5-14.5) Platelet Count 212 x10^3/uL (140-400) Sodium Level 136 mmol/L (136-145) Potassium Level 3.9 mmol/L (3.5-5.1) Chloride Level 100 mmol/L (98-107) Carbon Dioxide Level 26 mmol/L (21-32) Anion Gap 10 (6-14) Blood Urea Nitrogen 14 mg/dL (7-20) Creatinine 1.0 mg/dL (0.6-1.0) Estimated GFR (Cockcroft-Gault) 55.5 Glucose Level 180 mg/dL (70-99) Calcium Level 8.9 mg/dL (8.5-10.1) Laboratory Tests Test 10/01/19 10:23 10/01/19 11:33 10/01/19 13:22 10/01/19 17:00 Glucose (Fingerstick) 181 mg/dL (70-99) 223 mg/dL (70-99) 153 mg/dL (70-99) 216 mg/dL (70-99) Test 10/01/19 18:15 10/01/19 20:35 10/02/19 08:00 10/02/19 08:40 Urine Collection Type Unknown Urine Color Yellow Urine Clarity Clear Urine pH 6.0 (<5.0-8.0) Urine Specific [place] 1.020 (1.000-1.030) Urine Protein 30 mg/dL (NEG-TRACE) Urine Glucose (UA) Negative mg/dL (NEG) Urine Ketones (Stick) Negative mg/dL (NEG) Urine Blood Negative (NEG) Urine Nitrite Negative (NEG) Urine Bilirubin Negative (NEG) Urine Urobilinogen Dipstick 0.2 mg/dL (0.2 mg/dL) Urine Leukocyte Esterase Small (NEG) Urine RBC 0 /HPF (0-2) Urine WBC 20-40 /HPF (0-4) Urine Squamous Epithelial Cells Mod /LPF Urine Transitional Epithelial Cells Few /LPF Urine Renal Epithelial Cells Occ /LPF Urine Bacteria 0 /HPF (0-FEW) Urine Hyaline Casts Moderate /HPF Urine Granular Casts Occasional /HPF Urine Mucus Mod /LPF Glucose (Fingerstick) 207 mg/dL (70-99) 168 mg/dL (70-99) White Blood Count 11.3 x10^3/uL (4.0-11.0) Red Blood Count 4.09 x10^6/uL (3.50-5.40) Hemoglobin 11.8 g/dL (12.0-15.5) Hematocrit 35.1 % (36.0-47.0) Mean Corpuscular Volume 86 fL (79-100) Mean Corpuscular Hemoglobin 29 pg (25-35) Mean Corpuscular Hemoglobin Concent 34 g/dL (31-37) Red Cell Distribution Width 14.5 % (11.5-14.5) Platelet Count 212 x10^3/uL (140-400) Sodium Level 136 mmol/L (136-145) Potassium Level 3.9 mmol/L (3.5-5.1) Chloride Level 100 mmol/L (98-107) Carbon Dioxide Level 26 mmol/L (21-32) Anion Gap 10 (6-14) Blood Urea Nitrogen 14 mg/dL (7-20) Creatinine 1.0 mg/dL (0.6-1.0) Estimated GFR (Cockcroft-Gault) 55.5 Glucose Level 180 mg/dL (70-99) Calcium Level 8.9 mg/dL (8.5-10.1) Notes She is awake and alert, speech is clear, incisions are intact, very small amount of dried blood present around them. Normal motor and sensation are present in her left hand Assessment and Plan Her blood pressures been a little high, they are treating that. We will adjust her pain regimen as she has been quite sore and did not have any oral meds ordered. I discussed her care with her family and nursing. I do think she can be discharged home later today. NATASHA CAT II, MD Oct 02, 2019 09:30
[2019-10-02] MEDS: INSULIN LISPRO 300 UNITS/3 ML VIAL. SQ SCH ×2 (09:32→12:38)
[2019-10-02] MEDS: oxyCODONE/APAP 5/325 1 TAB TABLET PO PRN ×2 (10:41→15:31)
[2019-10-02 11:23] VITALS: BP 90/49
--- NOTE | 2019-10-02 15:48 | NUR ---
Discharge Note: LUIS ALBERTO SMITH [address] Discharge instructions and discharge home medications reviewed with Patient and a copy given. All questions have been answered and understanding verbalized. The following instructions and handouts were given: Percocet, prochlorperazine Patient discharged to home with self care via wheelchair.
[2019-10-03 03:09] LABS: HEMOGLOBIN A1C 6.9 % (4.8-5.6)
[2019-10-03] MEDS ORDERED: cefTRIAXone IV Push 1 GM VIAL. IVP SCH (06:00)
--- NOTE | 2019-10-03 08:18 | PDOC ---
CARDIOLOGY PROGRESS NOTE SUBJECTIVE: Late entry for 10/02/2019 No new events. Denies any angina OBJECTIVE: Vital Signs/I&O: Vital Signs Date Time Temp Pulse Resp B/P (MAP) Pulse Ox O2 Delivery O2 Flow Rate FiO2 10/02/19 15:31 95 Room Air 3.0 10/02/19 11:23 98.4 62 18 90/49 (63) 98.4 I & O 10/02/19 10/02/19 10/03/19 15:00 23:00 07:00 Intake Total 180 ml Balance 180 ml Objective: normal heart tones. clear lungs no edema. a/ox 3. No rashes CURRENT MEDICATIONS: Current Medications Medications (Trade) Dose Ordered Sig/Abner Route PRN Reason Start Time Stop Time Status Last Admin Dose Admin Aspirin (Aspirin Chewable) 162 mg DAILY PO 10/02/19 09:00 10/02/19 15:56 DC 10/02/19 09:11 Atorvastatin Calcium (Lipitor) 10 mg DAILY PO 10/02/19 09:00 10/02/19 15:56 DC 10/02/19 09:11 Losartan Potassium (Cozaar) 50 mg DAILY PO 10/02/19 09:00 10/02/19 15:56 DC 10/02/19 09:14 Memantine (Namenda) 10 mg DAILY PO 10/02/19 09:00 10/02/19 15:56 DC 10/02/19 09:13 Sertraline HCl (Zoloft) 75 mg DAILY PO 10/02/19 09:00 10/02/19 15:56 DC 10/02/19 09:13 Oxycodone/ Acetaminophen (Percocet 5/325) 1 tab PRN Q4HRS PRN PO MODERATE TO SEVERE PAIN 10/02/19 09:30 10/02/19 15:56 DC 10/02/19 15:31 DIAGNOSTIC TESTING: EKGs reviewed. Trop negative. Labs: Laboratory Tests 10/02/19 08:40 Laboratory Tests Test 10/02/19 08:40 10/02/19 11:37 White Blood Count 11.3 x10^3/uL (4.0-11.0) H Red Blood Count 4.09 x10^6/uL (3.50-5.40) Hemoglobin 11.8 g/dL (12.0-15.5) L Hematocrit 35.1 % (36.0-47.0) L Mean Corpuscular Volume 86 fL (79-100) Mean Corpuscular Hemoglobin 29 pg (25-35) Mean Corpuscular Hemoglobin Concent 34 g/dL (31-37) Red Cell Distribution Width 14.5 % (11.5-14.5) Platelet Count 212 x10^3/uL (140-400) Sodium Level 136 mmol/L (136-145) Potassium Level 3.9 mmol/L (3.5-5.1) Chloride Level 100 mmol/L (98-107) Carbon Dioxide Level 26 mmol/L (21-32) Anion Gap 10 (6-14) Blood Urea Nitrogen 14 mg/dL (7-20) Creatinine 1.0 mg/dL (0.6-1.0) Estimated GFR (Cockcroft-Gault) 55.5 Glucose Level 180 mg/dL (70-99) H Hemoglobin A1c 6.9 % (4.8-5.6) H Calcium Level 8.9 mg/dL (8.5-10.1) Thyroid Stimulating Hormone (TSH) 0.460 uIU/mL (0.358-3.74) Glucose (Fingerstick) 229 mg/dL (70-99) H ASSESSMENT: 1. Abnormal EKG. 2. HTN PLAN: 1. Her EKG's have some changing patterns suggestive of inferior ischemia/infarct but she has no chest pain and normal cardiac biomarkers. 2. Will plan for outpt stress test. Thanks - Justicifation of Admission Dx: Justifications for Admission: Justification of Admission Dx: N/A SHERI MUSA MD Oct 03, 2019 08:18
== END 2019-10-02 15:35 | disposition home or self-care (01) ==
LOC: SURG 05:43 → 2 SOUTH 13:25
PROVIDERS: ADMIT Family Medicine; ATTEND Orthopaedic Surgery
DX: M75.112 Incomplete rotator cuff tear or rupture of left shoulder, not specified as traumatic (principal); M75.42 Impingement syndrome of left shoulder; M19.012 Primary osteoarthritis, left shoulder; R53.1 Weakness
CPT/HCPCS: 29824; 29826; 36415; 80048; 81001; 82962; 83036; 84443; 84484; 85027; 87086; 93005; 96374; 96375; 97162; 97166; G0378; G0379; J0171; J0360; J0690; J0696; J1100; J1170; J1815; J2270; J2370; J2405; J2704; J2710; J2795; J3010; J3490; J7030; A7015; C1713; J7120

== ENCOUNTER → 2020-03-09 | Outpatient (CLI) | payer MEDICARE ==
--- NOTE | 2020-03-09 17:47 | KCIC ---
EXAM: MRI left SHOULDER WITHOUT CONTRAST INDICATION: Left shoulder pain, adhesive capsulitis, pain and limited range of motion. COMPARISON: MR left shoulder 09/07/2019 TECHNIQUE: Multiplanar, multisequence imaging of the left shoulder contrast. FINDINGS: ROTATOR CUFF: There are surgical changes of rotator cuff repair. No definite recurrent tear of the an terior supraspinatus tendon. There is new partial-thickness bursal sided tearing at the conjoined ten don measuring 0.6 x 0.7 cm. No full-thickness rotator cuff tear. The repaired cuff is irregular and t hickened with increased signal. The subscapularis tendon is intact. Teres minor tendon is intact. No muscle atrophy or edema. LABRUM: Superior labrum appears blunted. Motion artifact limits evaluation of the labrum. BICEPS TENDON: The intra-articular biceps tendon is not well visualized, which could be due to motion artifact or tenotomy. ACROMIOCLAVICULAR JOINT: Surgical changes of acromioplasty and distal clavicular resection. GLENOHUMERAL JOINT: Motion artifact limits evaluation of cartilage. Alignment is normal. There is no acute fracture.. OTHER: Mild edema in the rotator interval. No significant joint effusion. There is fluid in the subac romial-subdeltoid bursa.. IMPRESSION: 1. Interval surgical changes of rotator cuff repair. There is a new partial-thickness bursal sided te ar of the conjoined tendon distally at the footprint. The supraspinatus and infraspinatus tendons are irregular with increased signal and thickening but no definite recurrent full-thickness tear. 2. Signal changes of distal clavicular resection and acromioplasty. Biceps tendon is not well visual ized, which could be due to motion artifact or tenotomy. Electronically signed by: Lea Burns MD (03/09/2020 5:45 PM) [id number]
== END ==
LOC: KCIC MRI 13:33
PROVIDERS: ATTEND Physician Assistant
DX: M75.02 Adhesive capsulitis of left shoulder (principal)
CPT/HCPCS: 73221